=== PATIENT | female | born 1940 | race Caucasian/White ===

== ENCOUNTER → 2017-06-09 | Outpatient (CLI) | payer MEDICARE, OTHER ==
[~2017-06-09] MED LIST: ACYCLOVIR 400400 MG PO; BUSPIRONE HCL10 MG PO; COUMADIN 4 MG TA4 M1 PO; PEPCID20 MG PO; PRILOSEC 20 MG20 MG PO; TRAMADOL 50 MG50 MG PO; TUMS PO; VITAL-D RX TAB1 EACH PO; WELLBUTRIN 75 M75 M1 PO
== END ==
LOC: M.RAD 13:44
DX: Z12.31 Encounter for screening mammogram for malignant neoplasm of breast (principal)

== ENCOUNTER → 2018-11-30 | Outpatient (CLI) | payer MEDICARE, OTHER ==
--- NOTE | 2018-11-30 12:49 | 2DMMODE ---
[place] [address] 2 D/M-MODE ECHOCARDIOGRAM Name: KATINA HEBarak HERNANDESE Room: [facility]#: [id number] Admission: 11/30/18 Attend Phys: Grace Lipscomb, Discharge: Date of : 40 Date of Service: 11/30/18 1249 Report #: [id number] THIS REPORT FOR: //name// APPROVED REPORT Study performed: 11/30/2018 08:35:09 EXAM: Comprehensive 2D, Doppler, and color-flow Echocardiogram Patient Location: Out-Patient BSA: 1.49 HR: 63 bpm BP: 136/80 mmHg Other Information Study Quality: Good Indications Pre-Op LBBB 2D Dimensions IVSd: 13.74 (7-11mm) LVOT Diam: 19.50 (18-24mm) LVDd: 36.57 mm PWd: 9.26 (7-11mm) Ascending Ao: 26.72 (22-36mm) LVDs: 28.06 (25-40mm) Aortic Root: 24.52 mm Volumes Left Atrial Volume (Systole) LA ESV Index: 11.70 mL/m2 Aortic Valve AoV Peak Jhon.: 1.30 m/s AO Peak Gr.: 6.71 mmHg LVOT Max P.06 mmHg AO Mean Gr.: 3.46 mmHg LVOT Mean P.88 mmHg LVOT Max V: 1.01 m/s AO V2 VTI: 23.30 cm LVOT Mean V: 0.63 m/s YAMILEX (VTI): 2.54 cm2 LVOT V1 VTI: 19.86 cm Mitral Valve E/A Ratio: 0.63 MV Decel. Time: 227.91 ms MV E Max Jhon.: 0.58 m/s MV PHT: 66.09 [place] [address] 2 D/M-MODE ECHOCARDIOGRAM Name: WING HE SHANNON Room: [facility]#: [id number] Admission: 11/30/18 Attend Phys: Grace Lipscomb, Discharge: Date of : 40 Date of Service: 11/30/18 1249 Report #: [id number] MVA (PHT): 3.33 cm2 TDI E/Lateral E': 9.67 E/Medial E': 7.25 Medial E' Jhon.: 0.08 m/s Lateral E' Jhon.: 0.06 m/s Pulmonary Valve PV Peak Jhon.: 0.76 m/s PV Peak Gr.: 2.33 mmHg Tricuspid Valve RAP Estimate: 5.00 mmHg TR Peak Gr.: 15.11 mmHg RVSP: 20.11 mmHg PA Pressure: 20.11 mmHg Left Ventricle The left ventricle is normal size. There is normal LV segmental wall motion. There is normal left ventricular wall thickness. Left ventricular systolic function is normal. The left ventricular ejection fraction is within the normal range. LVEF is 50-55%. Grade I - abnormal relaxation pattern. Right Ventricle The right ventricle is normal size. The right ventricular systolic function is normal. Atria The left atrium size is normal. The right atrium size is normal. Aortic Valve Mild aortic valve sclerosis. Trace aortic regurgitation. There is no aortic valvular stenosis. Mitral Valve The mitral valve is normal in structure. There is no mitral valve regurgitation noted. No evidence of mitral valve stenosis. Tricuspid Valve The tricuspid valve is normal in structure. Trace tricuspid regurgitation. Pulmonic Valve The pulmonary valve is normal in structure. There is no pulmonic [place] [address] 2 D/M-MODE ECHOCARDIOGRAM Name: WING HE Room: [facility]#: [id number] Admission: 11/30/18 Attend Phys: Grace Lipscomb, Discharge: Date of : 40 Date of Service: 11/30/18 1249 Report #: [id number] Great Vessels The aortic root is normal in size. IVC is normal in size and collapses >50% with inspiration. Pericardium There is no pericardial effusion. <Conclusion> The left ventricle is normal size. There is normal left ventricular wall thickness. Left ventricular systolic function is normal. The left ventricular ejection fraction is within the normal range. LVEF is 50-55%. Grade I - abnormal relaxation pattern. The right ventricle is normal size. The left atrium size is normal. Mild aortic valve sclerosis. Trace aortic regurgitation. There is no aortic valvular stenosis. The mitral valve is normal in structure. The tricuspid valve is normal in structure. IVC is normal in size and collapses >50% with inspiration. There is no pericardial effusion. There is normal LV segmental wall motion. <ELECTRONICALLY SIGNED> By: Dg Sue MD, FACC 11/30/18 1249 1249 1249 Dg Sue MD, FACC /INF
--- NOTE | 2018-11-30 17:11 | CARDNUC ---
[place] [address] CARDIAC NUCLEAR IMAGING REPORT Name: WING HE Room: [facility]#: [id number] Admission: 11/30/18 Attend Phys: Grace Lipscomb, Discharge: Date of : 40 Date of Service: 11/30/18 1711 Report #: [id number] THIS REPORT FOR: //name// APPROVED REPORT Imaging Protocol: Rest Tc-99m/Stress Tc-99m 1 day Study performed: 11/30/2018 09:15:00 Indication: Pre-Operative CV evaluation Stress Tech: Mary Gill Stress Nurse: Za Guan RN NM Tech:CHRIS Rowan Ht: 5118 ft 0 in Wt: 118 lbs BSA: 226.95 m2 BMI: 0.00 Medical History Medical History: LBBB, hypertension, hyperlipidemia Medications: no cardiac meds Allergies: lates, penicillin Cardiac Risk Factors: age, hyperlipidemia, former tobacco, family hx Exercise History: Sedentary Resting Data Rest SPECT myocardial perfusion imaging was performed in supine position 30 minutes following the intravenous injection of 11.5 mCi of Tc-99m Sestamibi. Time of rest injection: 939 Date: 11/30/2018 The images were gated to evaluate regional wall motion and calculate left ventricular ejection fraction. Administration Route: IV Pharmacologic Stress Pharmacologic stress test was performed by injecting Regadenoson 0.4 mg IV push over 10-15 seconds immediately followed by the intravenous injection of 36.0 mCi of Tc-99m Sestamibi. Time of stress injection: 1120 Date: 11/30/2018 Administration Route: IV Gated Stress SPECT was performed 40 minutes after stress injection. The images were gated to evaluate regional wall motion and calculate left ventricular ejection fraction. Prone [place] [address] CARDIAC NUCLEAR IMAGING REPORT Name: WING HE Room: [facility]#: [id number] Admission: 11/30/18 Attend Phys: AurelioKraig Alfred Lipscomb, Discharge: Date of : 40 Date of Service: 11/30/18 1711 Report #: [id number] Stress Test Details Stress Test: Pharmacologic stress testing performed using 0.4 mg of regadenoson per 5 mL given IV over 10 seconds. Reason for pharmacologic stress test: physical limitation. HR Max Heart Rate (APMHR): 142 bpm Resting HR: 65 bpm Target HR (85% APMHR): 120 bpm Max HR Achieved: 94 bpm % of APMHR: 66 Recovery HR: 85 bpm BP Resting BP: 132/82 mmHg Max BP: 173/85 mmHg Recovery BP: 148/78 mmHg ECG Resting ECG: Sinus Rhythm, LBBB Stress ECG: Sinus Rhythm, LBBB ST Change: None Arrhythmia: None Recovery ECG: Sinus Rhythm, LBBB Recovery ST Change: None Recovery Arrhythmia: None Clinical Reason for Termination: Completed protocol Exercise duration: 0 min sec Exercise capacity: 1 METs The patient had chest discomfort with Lexiscan infusion felt to be due to medication effect in light of perfusion imaging findings. Nurse Comments pt co chest pain during procedure, resolved with caffeine. Zofran 4 mg ivp given for nausea Stress ECG Conclusion Baseline 12-lead EKG shows sinus rhythm with left bundle-branch block. EKGs obtained during and post Lexiscan infusion show sinus rhythm with left bundle-branch block. There were no stress-induced arrhythmias. Study Quality Study: Good Artifact: [place] [address] CARDIAC NUCLEAR IMAGING REPORT Name: WING HE Room: [facility]#: [id number] Admission: 11/30/18 Attend Phys: Grace Lipscomb, Discharge: Date of : 40 Date of Service: 11/30/18 1711 Report #: [id number] Study Data At rest, the left ventricular ejection fraction was 75%.. Post stress, the left ventricular ejection was 77%.. TID = 0.70. Perfusion Perfusion images obtained in the supine position at rest and post Lexiscan stress show mild photopenia in the inferior wall that resolves with post stress prone imaging suggesting diaphragmatic attenuation artifact. There is very focal apical thinning noted on supine images that again resolved with post stress prone imaging suggesting artifact. No significant fixed or reversible defects were identified. Wall Motion Normal left ventricular wall motion. Nuclear Conclusion ECG Findings: non-diagnostic Clinical Findings: equivocal Nuclear Findings: negative for ischemia Exercise Capacity: not assessed Left Ventricular Function: normal Risk Study: low Perfusion images show no defect to suggest infarct or ischemia. Left ventricular systolic function appears normal on gated studies. This is a low risk study. <Conclusion> Baseline 12-lead EKG shows sinus rhythm with left bundle-branch block. EKGs obtained during and post Lexiscan infusion show sinus rhythm with left bundle-branch block. There were no stress-induced arrhythmias. <ELECTRONICALLY SIGNED> By: Jose Corral MD, FACC 11/30/181710 10 10 Jose Corral MD, FACC /INF
== END ==
LOC: M.CRD 11-25 11:09 → M.NUC 11-29 09:00 → M.CRD 08:35 → M.RAD 08:35 → M.CRD 09:00 → M.NUC 10:00 → M.CRD 12-07 09:00 → M.NUC 12-07 09:00
DX: Z12.31 Encounter for screening mammogram for malignant neoplasm of breast (principal); I35.8 Other nonrheumatic aortic valve disorders; I44.7 Left bundle-branch block, unspecified; E78.5 Hyperlipidemia, unspecified; Z87.891 Personal history of nicotine dependence; Z91.040 Latex allergy status

== ENCOUNTER → 2019-09-06 | Outpatient (CLI) | payer MEDICARE, OTHER | LOC: M.RAD 12:07 | PROVIDERS: ATTEND Neurological Surgery | DX: M51.36 Other intervertebral disc degeneration, lumbar region (principal); M47.816 Spondylosis without myelopathy or radiculopathy, lumbar region; M41.86 Other forms of scoliosis, lumbar region; G89.29 Other chronic pain; I70.0 Atherosclerosis of aorta ==

== ENCOUNTER → 2020-07-17 | Outpatient (CLI) | payer MEDICARE, OTHER | LOC: M.RAD 10:37 | PROVIDERS: ATTEND Nurse Practitioner Family | DX: Z12.31 Encounter for screening mammogram for malignant neoplasm of breast (principal); N64.89 Other specified disorders of breast ==